=== PATIENT | male | born 1935 | race Caucasian/White ===

== ENCOUNTER 2021-07-17 11:55 | Outpatient (REF) | payer MEDICARE, SELFPAY ==
[2021-07-17 13:55] LABS: Estimated Average Glucose 203 mg/dL; Hemoglobin A1c % 8.7 %
== END 2021-07-17 11:56 | disposition home or self-care (01) ==
LOC: HO.MANLDS 11:55
PROVIDERS: PCP Internal Medicine; Visit Provider Internal Medicine
DX: E11.9 Type 2 diabetes mellitus without complications (principal)
CPT/HCPCS: 36415; 83036

== ENCOUNTER 2021-09-20 14:53 | Outpatient (REF) | payer MEDICARE, SELFPAY ==
[2021-09-20 19:28] LABS: Estimated Average Glucose 217 mg/dL; Hemoglobin A1c % 9.2 %
== END 2021-09-20 14:54 | disposition home or self-care (01) ==
LOC: HO.MANLDS 14:53
PROVIDERS: PCP Internal Medicine; Visit Provider Internal Medicine
DX: E11.9 Type 2 diabetes mellitus without complications (principal)
CPT/HCPCS: 36415; 83036

== ENCOUNTER 2022-01-17 09:06 | Outpatient (REF) | payer MEDICARE, SELFPAY ==
[2022-01-17 11:26] LABS: MANUAL DIFF FLAG NO
[2022-01-17 11:31] LABS: Basophils Absolute Auto 0.1 X10*3/uL (0.0-0.2); Basophils Percent Auto 0.9 % (0-2); Eosinophils Absolute Auto 0.3 X10*3/uL (0.0-0.4); Eosinophils Percent Auto 4.2 % (0-4); Hematocrit 39.4 % (42.0-52.0); Hemoglobin 12.8 g/dl (14.0-18.0); Imm Gran Abs Auto 0.03 X10*3/uL (0.00-0.03); Imm Gran Pct Auto 0.4 % (0.0-0.4); Lymphocytes Absolute Auto 1.5 X10*3/uL (1.2-4.9); Lymphocytes Percent Auto 18.5 % (20-40); Mean Corpuscular HGB Conc 32.5 g/dl (31.0-36.0); Mean Corpuscular Hemoglobin 29.8 pg (27.0-33.0); Mean Corpuscular Volume 91.6 fL (80.0-98.0); Mean Platelet Volume 10.8 fL (9.4-12.4); Monocytes Absolute Auto 0.7 X10*3/uL (0.1-1.2); Monocytes Percent Auto 8.6 % (2-11); Neutrophils Absolute Auto 5.4 x10*3/uL (2.0-8.3); Neutrophils Percent Auto 67.4 % (45-73); Platelet Count 357 X10*3/uL (160-400); Red Cell Distribution Width 14.3 % (11.0-16.0); White Blood Count 7.9 X10*3/uL (4.8-10.8)
[2022-01-17 11:41] LABS: Estimated Average Glucose 194 mg/dL; Hemoglobin A1c % 8.4 %
[2022-01-17 11:45] LABS: Alanine Aminotransferase 19 U/L (0-40); Alkaline Phosphatase 92 U/L (39-117); Anion Gap 11 (12-20); Aspartate Amino Transferase 19 U/L (5-37); Blood Urea Nitrogen 23 mg/dL (9-16); Calcium 9.3 mg/dL (8.4-10.2); Carbon Dioxide 27 mmol/L (22-29); Chloride 106 mmol/L (96-108); Cholesterol 133 mg/dL; Estimated Glomerular Filt Rate 42; Glucose Random 116 mg/dL (60-115); HDL Cholesterol 28 mg/dL; LDL Cholesterol Calculated 79 mg/dl; Potassium 4.4 mmol/L (3.3-5.1); Sodium 140 mmol/L (135-145); Total Protein 6.4 g/dL (6.5-8.0); Triglycerides 130 mg/dL
== END 2022-01-17 09:07 | disposition home or self-care (01) ==
LOC: HO.MANLDS 09:06
PROVIDERS: Visit Provider Physician Assistant
DX: E78.2 Mixed hyperlipidemia (principal); E11.9 Type 2 diabetes mellitus without complications
CPT/HCPCS: 36415; 80053; 80061; 83036; 85025

== ENCOUNTER 2022-04-17 10:52 | Outpatient (REF) | payer MEDICARE, SELFPAY ==
[2022-04-17 13:59] LABS: MANUAL DIFF FLAG NO
[2022-04-17 14:06] LABS: Basophils Absolute Auto 0.1 X10*3/uL (0.0-0.2); Basophils Percent Auto 1.1 % (0-2); Eosinophils Absolute Auto 0.2 X10*3/uL (0.0-0.4); Eosinophils Percent Auto 3.2 % (0-4); Hemoglobin 12.4 g/dl (14.0-18.0); Imm Gran Abs Auto 0.02 X10*3/uL (0.00-0.03); Imm Gran Pct Auto 0.3 % (0.0-0.4); Lymphocytes Absolute Auto 1.1 X10*3/uL (1.2-4.9); Lymphocytes Percent Auto 14.5 % (20-40); Mean Corpuscular HGB Conc 32.6 g/dl (31.0-36.0); Mean Corpuscular Hemoglobin 30.3 pg (27.0-33.0); Mean Corpuscular Volume 92.9 fL (80.0-98.0); Mean Platelet Volume 11.1 fL (9.4-12.4); Monocytes Absolute Auto 0.5 X10*3/uL (0.1-1.2); Monocytes Percent Auto 7.1 % (2-11); Neutrophils Absolute Auto 5.3 x10*3/uL (2.0-8.3); Neutrophils Percent Auto 73.8 % (45-73); Platelet Count 337 X10*3/uL (160-400); Red Blood Count 4.09 X10*6/uL (4.60-5.80); Red Cell Distribution Width 13.6 % (11.0-16.0); White Blood Count 7.2 X10*3/uL (4.8-10.8)
[2022-04-17 14:12] LABS: Estimated Average Glucose 169 mg/dL; Hemoglobin A1c % 7.5 %
[2022-04-17 14:17] LABS: Alanine Aminotransferase 21 U/L (0-40); Albumin Level 3.9 g/dL (3.5-5.0); Alkaline Phosphatase 81 U/L (39-117); Anion Gap 14 (12-20); Aspartate Amino Transferase 18 U/L (5-37); Bilirubin Total 0.8 mg/dL (0.0-1.0); Blood Urea Nitrogen 25 mg/dL (9-16); Calcium 9.3 mg/dL (8.4-10.2); Carbon Dioxide 27 mmol/L (22-29); Chloride 104 mmol/L (96-108); Estimated Glomerular Filt Rate 45; Glucose Random 250 mg/dL (60-115); Potassium 4.8 mmol/L (3.3-5.1); Sodium 140 mmol/L (135-145); Total Protein 6.3 g/dL (6.5-8.0)
== END 2022-04-17 10:53 | disposition home or self-care (01) ==
LOC: HO.MANLDS 10:52
PROVIDERS: Visit Provider Physician Assistant
DX: E78.2 Mixed hyperlipidemia (principal); E11.9 Type 2 diabetes mellitus without complications
CPT/HCPCS: 36415; 80053; 83036; 85025

== ENCOUNTER 2022-08-14 14:28 | Outpatient (REF) | payer MEDICARE, SELFPAY ==
[2022-08-15 07:45] LABS: Estimated Average Glucose 186 mg/dL; Hemoglobin A1c % 8.1 %
== END 2022-08-14 14:29 | disposition home or self-care (01) ==
LOC: HO.MANLDS 14:28
PROVIDERS: Visit Provider Physician Assistant
DX: E11.9 Type 2 diabetes mellitus without complications (principal)
CPT/HCPCS: 36415; 83036

== ENCOUNTER 2022-11-26 10:29 | Outpatient (REF) | payer MEDICARE, SELFPAY ==
[2022-11-26 14:01] LABS: MANUAL DIFF FLAG NO
[2022-11-26 14:34] LABS: Basophils Absolute Auto 0.1 X10*3/uL (0.0-0.2); Basophils Percent Auto 1.4 % (0-2); Eosinophils Absolute Auto 0.3 X10*3/uL (0.0-0.4); Eosinophils Percent Auto 4.6 % (0-4); Hemoglobin 13.2 g/dl (14.0-18.0); Imm Gran Abs Auto 0.02 X10*3/uL (0.00-0.03); Imm Gran Pct Auto 0.3 % (0.0-0.4); Lymphocytes Absolute Auto 1.4 X10*3/uL (1.2-4.9); Lymphocytes Percent Auto 18.5 % (20-40); Mean Corpuscular HGB Conc 32.2 g/dl (31.0-36.0); Mean Corpuscular Hemoglobin 29.7 pg (27.0-33.0); Mean Corpuscular Volume 92.1 fL (80.0-98.0); Mean Platelet Volume 10.9 fL (9.4-12.4); Monocytes Absolute Auto 0.6 X10*3/uL (0.1-1.2); Monocytes Percent Auto 8.6 % (2-11); Neutrophils Absolute Auto 4.9 x10*3/uL (2.0-8.3); Neutrophils Percent Auto 66.6 % (45-73); Platelet Count 349 X10*3/uL (160-400); Red Blood Count 4.45 X10*6/uL (4.60-5.80); Red Cell Distribution Width 14.3 % (11.0-16.0); White Blood Count 7.4 X10*3/uL (4.8-10.8)
[2022-11-26 14:40] LABS: Alanine Aminotransferase 26 U/L (0-40); Albumin Level 3.9 g/dL (3.5-5.0); Alkaline Phosphatase 97 U/L (39-117); Anion Gap 11 (12-20); Aspartate Amino Transferase 22 U/L (5-37); Blood Urea Nitrogen 25 mg/dL (9-16); Calcium 9.6 mg/dL (8.4-10.2); Carbon Dioxide 29 mmol/L (22-29); Chloride 107 mmol/L (96-108); Estimated Glomerular Filt Rate 51; Glucose Random 197 mg/dL (60-115); Potassium 4.6 mmol/L (3.3-5.1); Sodium 142 mmol/L (135-145); Total Protein 6.4 g/dL (6.5-8.0)
[2022-11-26 14:45] LABS: Estimated Average Glucose 169 mg/dL; Hemoglobin A1c % 7.5 %
== END 2022-11-26 10:30 | disposition home or self-care (01) ==
LOC: HO.MANLDS 10:29
PROVIDERS: Visit Provider Physician Assistant
DX: E78.2 Mixed hyperlipidemia (principal); E11.9 Type 2 diabetes mellitus without complications
CPT/HCPCS: 36415; 80053; 83036; 85025

== ENCOUNTER 2023-01-21 10:25 | Outpatient (REF) | payer MEDICARE, SELFPAY ==
[2023-01-21 13:29] LABS: MANUAL DIFF FLAG NO
[2023-01-21 13:51] LABS: Basophils Absolute Auto 0.1 X10*3/uL (0.0-0.2); Basophils Percent Auto 0.9 % (0-2); Eosinophils Absolute Auto 0.2 X10*3/uL (0.0-0.4); Eosinophils Percent Auto 2.2 % (0-4); Hematocrit 39.9 % (42.0-52.0); Hemoglobin 12.7 g/dl (14.0-18.0); Imm Gran Abs Auto 0.04 X10*3/uL (0.00-0.03); Imm Gran Pct Auto 0.4 % (0.0-0.4); Lymphocytes Absolute Auto 1.1 X10*3/uL (1.2-4.9); Lymphocytes Percent Auto 11.8 % (20-40); Mean Corpuscular HGB Conc 31.8 g/dl (31.0-36.0); Mean Corpuscular Volume 94.3 fL (80.0-98.0); Monocytes Absolute Auto 0.9 X10*3/uL (0.1-1.2); Monocytes Percent Auto 10.1 % (2-11); Neutrophils Absolute Auto 6.8 x10*3/uL (2.0-8.3); Neutrophils Percent Auto 74.6 % (45-73); Platelet Count 317 X10*3/uL (160-400); Red Blood Count 4.23 X10*6/uL (4.60-5.80); Red Cell Distribution Width 14.8 % (11.0-16.0); White Blood Count 9.1 X10*3/uL (4.8-10.8)
[2023-01-21 14:22] LABS: Estimated Average Glucose 166 mg/dL; Hemoglobin A1c % 7.4 %
[2023-01-21 14:34] LABS: Alanine Aminotransferase 22 U/L (0-40); Albumin Level 3.8 g/dL (3.5-5.0); Alkaline Phosphatase 86 U/L (39-117); Anion Gap 12 (12-20); Aspartate Amino Transferase 20 U/L (5-37); Bilirubin Total 0.8 mg/dL (0.0-1.0); Blood Urea Nitrogen 25 mg/dL (9-16); Calcium 9.6 mg/dL (8.4-10.2); Carbon Dioxide 27 mmol/L (22-29); Chloride 107 mmol/L (96-108); Estimated Glomerular Filt Rate 52; Glucose Random 200 mg/dL (60-115); Potassium 4.6 mmol/L (3.3-5.1); Sodium 141 mmol/L (135-145); Total Protein 6.5 g/dL (6.5-8.0)
== END 2023-01-21 10:26 | disposition home or self-care (01) ==
LOC: HO.MANLDS 10:25
PROVIDERS: Internal Medicine; Visit Provider Physician Assistant
DX: E78.2 Mixed hyperlipidemia (principal); E11.9 Type 2 diabetes mellitus without complications
CPT/HCPCS: 36415; 80053; 83036; 85025

== ENCOUNTER 2023-04-29 09:34 | Outpatient (REF) | payer MEDICARE, SELFPAY ==
[2023-04-29 13:58] LABS: Estimated Average Glucose 183 mg/dL
== END 2023-04-29 09:35 | disposition home or self-care (01) ==
LOC: HO.MANLDS 09:34
PROVIDERS: Visit Provider Internal Medicine
DX: E11.9 Type 2 diabetes mellitus without complications (principal)
CPT/HCPCS: 36415; 83036

== ENCOUNTER 2023-09-13 09:21 | Outpatient (REF) | payer MEDICARE, SELFPAY ==
[2023-09-13 13:10] LABS: MANUAL DIFF FLAG NO
[2023-09-13 13:31] LABS: Basophils Absolute Auto 0.1 X10*3/uL (0.0-0.2); Basophils Percent Auto 0.9 % (0-2); Eosinophils Absolute Auto 0.2 X10*3/uL (0.0-0.4); Eosinophils Percent Auto 2.5 % (0-4); Hematocrit 42.6 % (42.0-52.0); Hemoglobin 13.7 g/dl (14.0-18.0); Imm Gran Abs Auto 0.02 X10*3/uL (0.00-0.03); Imm Gran Pct Auto 0.3 % (0.0-0.4); Lymphocytes Absolute Auto 1.3 X10*3/uL (1.2-4.9); Lymphocytes Percent Auto 16.7 % (20-40); Mean Corpuscular HGB Conc 32.2 g/dl (31.0-36.0); Mean Corpuscular Hemoglobin 30.2 pg (27.0-33.0); Mean Corpuscular Volume 93.8 fL (80.0-98.0); Mean Platelet Volume 11.2 fL (9.4-12.4); Monocytes Absolute Auto 0.5 X10*3/uL (0.1-1.2); Monocytes Percent Auto 6.4 % (2-11); Neutrophils Absolute Auto 5.5 x10*3/uL (2.0-8.3); Neutrophils Percent Auto 73.2 % (45-73); Platelet Count 325 X10*3/uL (160-400); Red Blood Count 4.54 X10*6/uL (4.60-5.80); Red Cell Distribution Width 13.7 % (11.0-16.0); White Blood Count 7.5 X10*3/uL (4.8-10.8)
[2023-09-13 14:04] LABS: Estimated Average Glucose 214 mg/dL; Hemoglobin A1c % 9.1 % (<6.0)
[2023-09-13 14:39] LABS: Alanine Aminotransferase 23 U/L (0-40); Albumin Level 3.8 g/dL (3.5-5.0); Alkaline Phosphatase 92 U/L (39-117); Anion Gap 12 (12-20); Aspartate Amino Transferase 21 U/L (5-37); Bilirubin Total 1.3 mg/dL (0.0-1.0); Blood Urea Nitrogen 18 mg/dL (9-16); Calcium 9.7 mg/dL (8.4-10.2); Carbon Dioxide 30 mmol/L (22-29); Chloride 105 mmol/L (96-108); Estimated Glomerular Filt Rate 56; Glucose Random 277 mg/dL (60-115); Potassium 4.9 mmol/L (3.3-5.1); Sodium 142 mmol/L (135-145); Total Protein 6.8 g/dL (6.5-8.0)
== END 2023-09-13 09:22 | disposition home or self-care (01) ==
LOC: HO.MANLDS 09:21
PROVIDERS: Visit Provider Internal Medicine
DX: E11.9 Type 2 diabetes mellitus without complications (principal)
CPT/HCPCS: 36415; 80053; 83036; 85025

== ENCOUNTER 2024-01-17 07:50 | Outpatient (REF) | payer MEDICARE, SELFPAY ==
[2024-01-17 13:24] LABS: Estimated Average Glucose 174 mg/dL; Hemoglobin A1c % 7.7 % (<6.0)
[2024-01-17 13:53] LABS: Cholesterol 131 mg/dL (<200); HDL Cholesterol 37 mg/dL (>40); LDL Cholesterol Calculated 77 mg/dL (<100); Triglycerides 89 mg/dL (<150)
== END 2024-01-17 07:51 | disposition home or self-care (01) ==
LOC: HO.MANLDS 07:50
PROVIDERS: Visit Provider Internal Medicine
DX: E11.9 Type 2 diabetes mellitus without complications (principal)
CPT/HCPCS: 36415; 80061; 83036

== ENCOUNTER 2024-05-19 08:36 | Outpatient (REF) | payer MEDICARE, SELFPAY ==
[2024-05-19 13:54] LABS: Estimated Average Glucose 217 mg/dL; Hemoglobin A1C 260.4499 umol/L; Hemoglobin A1c % 9.2 % (<6.0); Total Hemoglobin (HGBA1C) 3369.6535 umol/L
== END 2024-05-19 08:37 | disposition home or self-care (01) ==
LOC: HO.MANLDS 08:36
PROVIDERS: Visit Provider Internal Medicine
DX: E11.9 Type 2 diabetes mellitus without complications (principal)
CPT/HCPCS: 36415; 83036

== ENCOUNTER 2024-08-19 09:10 | Outpatient (REF) | payer MEDICARE, SELFPAY ==
--- OUTSIDE RECORDS SUMMARY | 2024-08-19 10:10 | XMS_ITS | Data Portability ---
Author Organization [facility], Home Service Address [address] [place] [address] Assessment Encounter Date Assessment Date Assessment LastModified by Organization Details LastModified Time 09/24/2023 09/24/2023 [id number] [place] [id number]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 2 OUT OF 3 ELEMENTS: PROBLEMS, DATA OR RISK ELEMENT 1: PROBLEMS ADDRESSED 1 OR MORE CHRONIC ILLNESS WITH EXACERBATION OR 2 OR MORE STABLE CHRONIC ILLNESSES OR 1 UNDIAGNOSED NEW PROBLEM OR 1 ACUTE ILLNESS W/SYMPTOMS OR 1 ACUTE COMPLICATED INJURY ELEMENT 2: DATA MUST MEET 1 OF 3 CATEGORIES CATEGORY 1: REVIEW OF PRIOR EXTERNAL NOTES, REVIEW OF RESULTS, ORDERING OF EACH TEST, ASSESSMENT REQUIRING INDEPENDENT HISTORIAN OR CATEGORY 2: INDEPENDENT INTERPRETATION OF TESTS BY ANOTHER PHYSICIAN OR SPECIALIST OR CATEGORY 3: DISCUSSION OF MGT OR TEST INTERPRETATION W/EXTERNAL PHYSICIAN OR SPECIALIST ELEMENT 3: RISK RISK OF COMPLICATIONS AND/OR MORBIDITY OR MORTALITY OF PATIENT MANAGEMENT PROVIDER MUST THOROUGHLY DOCUMENT EACH ELEMENT THAT IS COVERED Not available 09/24/2023 13:34:32 05/25/2024 05/25/2024 [id number] [place] [id number]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 2 OUT OF 3 ELEMENTS: PROBLEMS, DATA OR RISK ELEMENT 1: PROBLEMS ADDRESSED 1 OR MORE CHRONIC ILLNESS WITH EXACERBATION OR 2 OR MORE STABLE CHRONIC ILLNESSES OR 1 UNDIAGNOSED NEW PROBLEM OR 1 ACUTE ILLNESS W/SYMPTOMS OR 1 ACUTE COMPLICATED INJURY ELEMENT 2: DATA MUST MEET 1 OF 3 CATEGORIES CATEGORY 1: REVIEW OF PRIOR EXTERNAL NOTES, REVIEW OF RESULTS, ORDERING OF EACH TEST, ASSESSMENT REQUIRING INDEPENDENT HISTORIAN OR CATEGORY 2: INDEPENDENT INTERPRETATION OF TESTS BY ANOTHER PHYSICIAN OR SPECIALIST OR CATEGORY 3: DISCUSSION OF MGT OR TEST INTERPRETATION W/EXTERNAL PHYSICIAN OR SPECIALIST ELEMENT 3: RISK RISK OF COMPLICATIONS AND/OR MORBIDITY OR MORTALITY OF PATIENT MANAGEMENT PROVIDER MUST THOROUGHLY DOCUMENT EACH ELEMENT THAT IS COVERED Not available 05/25/2024 14:18:27 Plan of Treatment Reminders Order Date Submit Date Provider Last Modified By Organization Details Last Modified Time Details Appointments FOLLOW UP 15 2024 02:15P M DR DAO Not available Not available Not available Lab HbA1c (hemoglob in A1c), blood 2023 024 [facility], [place], [address], 09/24/2023 13:38:46 lipid panel, blood 2023 024 [facility], [place], [address], 09/24/2023 13:38:45 urinalysi s, dipstick 2024 025 [facility], [address], [address], [place], [address], 07/13/2024 11:47:11 urinalysi s, reflex culture 2024 025 [facility], [place], [address], 07/14/2024 07:22:17 Referral ophthalmo logist referral 2023 024 juan manuel Cedillo, [address] [facility] [place], [place], [address], 10/22/2023 08:05:57 Procedures None recorded. Surgeries None recorded. Imaging None recorded. Medication Orders glimepiri de 4 mg tablet 2023 024 [id number], [address] [place], [place], [phone], 09/24/2023 13:37:37 Januvia 50 mg tablet 2023 024 [facility][id number], [address] [place], [place], [id number], 04/15/2024 08:39:49 pioglitaz one 15 mg tablet 2023 024 [facility][id number], [address] [place], [place], [id number], 06/14/2024 22:00:19 Bactrim DS 800 mg-160 mg tablet 2024 025 [facility] #[id number], [address] [place], [place], [id number], 07/13/2024 12:07:18 acarbose 50 mg tablet 2024 025 [facility] #[id number], [address] [place], [place], [phone], 07/13/2024 12:21:24 Patient TargetsNo targets recorded. Patient Instructions Encounter Date Encounter Id Patient Instructions Last Modified By Organization Details Last Modified Time 01/29/2024 [id number] high blood pressure: care instructions Not available 01/29/2024 13:33:28 learning about high blood pressure Not available 01/29/2024 13:33:28 Reason for Referral Functional Tester Referral for Bilateral cataracts Referring Physician: Osvaldo Dao, Internal Medicine, Encounter Date: 09/24/2023 Results Created Date Observation Date Name Description Value Unit Range Abnormal Flag Note LastModifiedBy Organization Detail LastModifiedTime 07/13/1907/13/2024 urina lysis , dipst ick Leukocytes Large Not Available [facility] [address] [address], [place], [address], 07/13/2024 11:39:03 07/13/19 25 07/13/2024 urina lysis , dipst ick Nitrite negati ve Not Available [facility] [address] [address] [address], [place], [address], 07/13/2024 11:39:03 07/13/19 25 07/13/2024 urina lysis , dipst ick Urobilinogen .2 Not Available [address], [place], [address], 07/13/2024 11:39:03 07/13/19 25 07/13/2024 urina lysis , dipst ick Protein 30 Not Available [address], [place], [address], 07/13/2024 11:39:03 07/13/19 25 07/13/2024 urina lysis , dipst ick pH 6.0 Not Available [address], [place], [address], 07/13/2024 11:39:03 07/13/19 25 07/13/2024 urina lysis , dipst ick Blood Large Not Available [address], [place], [address], 07/13/2024 11:39:03 07/13/19 25 07/13/2024 urina lysis , dipst ick Specific [place] 1.010 Not Available [address], [place], [address], 07/13/2024 11:39:03 07/13/19 25 07/13/2024 urina lysis , dipst ick Ketone Negati ve Not Available [address], [place], [address], 07/13/2024 11:39:03 07/13/19 25 07/13/2024 urina lysis , dipst ick Bilirubin Negati ve Not Available [address], [place], [address], 07/13/2024 11:39:03 07/13/19 25 07/13/2024 urina lysis , dipst ick Glucose 500 Not Available [facility] [address], [place], [address], 07/13/2024 11:39:03 07/13/19 25 07/13/2024 urina lysis , dipst ick Appearance Slight ly Cloudy Not Available [facility] [address], [place], [address], 07/13/2024 11:39:03 07/13/19 25 07/13/2024 urina lysis , dipst ick Color Yellow Not Available [facility] [address], [place], [address], 07/13/2024 11:39:03 Result Notes None recorded. 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 068585022 Completed 201706/27/2018 Osvaldo Dao, DO [address] [facility], [place], [address], [facility] - [facility] 8 11:06:39 History of placemen t of stent in anterior descendi ng branch of left coronary artery 659097270 Active 2017 Not Available [facility] 3 22:27:48 Benign prostati c hyperpla sharita 582663725 Active 2017 Not Available [facility] 3 22:27:48 Gastroin testinal hemorrha ge 73725976 Active 2017 Not Available [facility] 3 22:27:48 Anemia 992969723 Active 2017 Not Available [facility] 3 22:27:48 Acute depressi on 094598829 Active 2017 Not Available [facility] 3 22:27:48 Chronic anxiety 710543088 Active 2017 Not Available [facility] 3 22:27:48 Tinnitus 94330100 Completed 201710/17/2018 Osvaldo Dao, DO [address] [place] [address], [address], [facility] 9 15:34:00 Patient paced 792355315 Active 2020 Not Available [facility] 3 22:27:48 Cellulit is of right lower limb 29894582307 786753 Active 2021 Not Available [facility] 3 22:27:48 Pressure ulcer Active 2021 Not Available [facility] 3 22:27:48 Cellulit is of left foot 13856261486 288350 Active 2021 Not Available [facility] 3 22:27:48 Paronych ia of toe of left foot 47394961139 116143 Active 2021 Not Available [facility] 3 22:27:48 Pressure ulcer of foot 84822211200 4101 Active 2021 Not Available [facility] 3 22:27:48 Ingrowin g nail of toe of left foot 70820253054 816999 Active 2021 Not Available [facility] 3 22:27:48 Edema of lower extremit y 183510780 Active 2021 Not Available [facility] 3 22:27:48 Cellulit is of toe of right foot 29309011473 745761 Active 2021 Not Available [facility] 3 22:27:48 Peripher al vascular disease 536428902 Active 2021 Not Available [facility] 3 22:27:48 Venous stasis ulcer of leg 498110861 Active 2021 Not Available [facility] 3 22:27:48 Venous stasis ulcer of leg 374967409 Active 2021 Not Available [facility] 3 22:27:48 Acute otitis media 0434183 Active 2022 Not Available [facility] 3 22:27:48 Acute otitis media 0502626 Active 2022 Not Available [facility] 3 22:27:48 Impacted cerumen of bilatera l ears 75359347289 08829 Active 2022 Not Available [facility] 3 22:27:48 Superfic ial injury of finger 604617527 Active 2022 Not Available [facility] 3 22:27:48 Pain of ear 221615545 Active 2022 Not Available [facility] 3 22:27:48 Bilatera l cataract s 98554604 Active 2023 Osvaldo Dao DO [address] [place] [address], [address], [facility] 4 13:40:22 Dysuria 62813334 Active 2024 TRUPTI DAVEY [address] [place] [address], [address], [facility] 5 12:25:16 Dysuria- frequenc y syndrome 4902303 Active 2024 Osvaldo Dao DO [address] [place] [address], [address], [facility] 5 10:27:50 Notes:Some problems listed i n Documents: #[id number], #[id number], #[id number] could not be added to this patient's chart. Please review these documents and add these problems to the patient's chart manually as needed. Problem Notes None recorded. Procedures Surgical History Date Name Laterality Status Provider Name and Address Organization Details Recorded Time 3 Cerumen Removal completed TRUPTI DAVEY [address] [place] [address], [address], [facility] 12/19/2022 14:27:18 2 WOUND CARE completed TRUPTI DAVEY [address] [place], [address], [facility] 12/06/2021 11:42:56 2 WOUND CARE completed TRUPTI DAVEY [address] [place], [address], [facility] 11/22/2021 13:49:28 2 WOUND CARE completed TRUPTI DAVEY [address] [place], [address], [facility] 11/15/2021 11:28:50 Imaging Results None recorded. Procedure Notes None recorded. Medical Equipment None Reported. Allergies Allergen ID Allergen Name Allergen Category Reaction Reaction Severity Criticality Documentation Date Start Date Code Code System Note Provider Name and Address Organization Details Recorded Time 327 penicilli n V Not available Not available Not available Not available 09/10/2017 7984 [facility] 8 16:15[facility]55 328 lovastati n medicatio n myalgias (muscle pain) Not available Not available 09/10/2017 6472 RxNorm Nighat merida [facility] 8 16:16:00 5117 amlodipin e medicatio n other Not available Not available 05/31/2021 36961 RxNorm swell ing legs TRUPTI DAVEY [address] [place], [address], [facility] 1 14:12:32 5384 hydrochlo rothiazid e medicatio n dizziness Not available Not available 07/31/2021 5487 RxNorm Osvaldo Dao, [address] [place], [address], [facility] 2 12:15:26 6411 Jardiance medicatio n Not available Not available Not available 08/29/2022 03708 59 RxNorm Nighat merida [facility] 3 14:41:52 8650 pioglitaz one medicatio n Not available Not available Not available 07/13/2024 24449 RxNorm TRUPTI DAVEY [address] [place], [address], [facility] 5 12:07:31 Medications Name Sig Start Date Stop Date Status Note LastModified by Organization Details LastModified Time quetiapin e 25 mg tablet 09/29 completed Not Available Not Available Not Available pioglitaz one 15 mg tablet TAKE 1 TABLET BY MOUTH EVERY DAY 06/14 completed Not Available Not Available Not Available atorvasta tin 40 mg tablet TAKE 1 TABLET BY MOUTH DAILY active Not Available Not Available No t Available carvedilo l 25 mg tablet Take 1 tablet every day by oral route for 90 days. active Not Available Not Available No t Available doxycycli ne hyclate 100 mg capsule TAKE 1 CAPSULE BY MOUTH TWICE DAILY FOR 10 DAYS 07/13 completed Not Available Not Available Not Available carvedilo l 12.5 mg tablet active Not Available Not Available Not Available tizanidin e 2 mg tablet TAKE 1 TABLET BY MOUTH TWICE A DAY 09/22 completed Not Available Not Available Not Available ibuprofen 800 mg tablet 11/29 completed Not Available Not Available Not Available atenolol 100 mg tablet TAKE 1 TABLET BY MOUTH EVERY DAY 07/31 completed Not Available Not Available Not Available cephalexi n 250 mg capsule TAKE 1 CAPSULE BY MOUTH EVERY 6 HOURS FOR 7 DAYS 01/22 completed Not Available Not Available Not Available glipizide ER 10 mg tablet, extended release 24 hr Take 1 tablet every day by oral route for 30 days. 09/29 completed Not Available Not Available Not Available lisinopri l 20 mg tablet TAKE 1 TABLET BY MOUTH DAILY 07/31 completed Not Available Not Available Not Available isosorbid e mononitra te ER 30 mg tablet,ex tended release 24 hr TAKE 1 TABLET BY MOUTH DAILY IN THE MORNING 10/09 completed Not Available Not Available Not Available propranol ol ER 60 mg capsule,2 4 hr,extend ed release TAKE 1 CAPSULE BY MOUTH EVERY DAY 06/17 completed Not Available Not Available Not Available metoprolo l succinate ER 100 mg tablet,ex tended release 24 hr TAKE 1 TABLET BY MOUTH DAILY 09/22 completed Not Available Not Available Not Available acarbose 50 mg tablet TAKE 1 TABLET BY MOUTH EVERY DAY active Not Available Not Available No t Available clindamyc in HCl 150 mg capsule 11/29 completed Not Available Not Available Not Available amlodipin e 2.5 mg tablet Take 1 tablet every day by oral route for 90 days. 01/30 completed Not Available Not Available Not Available clopidogr el 75 mg tablet TAKE 1 TABLET BY MOUTH DAILY 08/14 completed Not Available Not Available Not Available Aspir-Low 81 mg tablet,de layed release Take 1 tablet every day by oral route. active Not Available Not Available No t Available amlodipin e 5 mg tablet TAKE 1 TABLET BY MOUTH ONCE A DAY 07/31 completed Not Available Not Available Not Available sulfameth oxazole 800 mg-trimet hoprim 160 mg tablet TAKE 1 TABLET BY MOUTH EVERY 12 HOURS FOR 5 DAYS active Not Available Not Available No t Available simvastat in 40 mg tablet TAKE ONE TABLET BY MOUTH ONCE DAILY 08/31 completed Not Available Not Available Not Available glimepiri de 2 mg tablet TAKE 2 TABLETS BY MOUTH EVERY DAY 04/15 completed Not Available Not Available Not Available lamotrigi ne 25 mg tablet Take one tablet twice a day. 08/31 completed Not Available Not Available Not Available nortripty line 25 mg capsule TAKE 1 CAPSULE BY MOUTH EVERY DAY active Not Available Not Available No t Available lorazepam 0.5 mg tablet TAKE 1 TABLET BY MOUTH THREE TIMES DAILY active Not Available Not Available No t Available pantopraz ole 40 mg tablet,de layed release TAKE 1 TABLET BY MOUTH EVERY DAY active Not Available Not Available No t Available nortripty line 10 mg capsule TAKE 1 CAPSULE BY MOUTH EVERY DAY active Not Available Not Available No t Available clotrimaz ole-betam ethasone 1 %-0.05 % topical cream APPLY TOPICALL Y TO THE AFFECTED AND SURROUND ING AREAS TWICE DAILY IN THE MORNING AND IN THE EVENING FOR 2 WEEKS 05/10 completed Not Available Not Available Not Available glimepiri de 4 mg tablet TAKE 1 TABLET BY MOUTH EVERY DAY active Not Available Not Available No t Available losartan 25 mg tablet TAKE 1 TABLET BY MOUTH EVERY DAY 08/31 completed Not Available Not Available Not Available omeprazol e 20 mg capsule,d elayed release Take 1 capsule every day by oral route for 30 days. 09/22 completed Not Available Not Available Not Available lisinopri l 20 mg-hydroc hlorothia zide 25 mg tablet TAKE 1 TABLET BY MOUTH DAILY 07/31 completed dizzines s Not Available Not Available Not Available lisinopri l 5 mg tablet TAKE 1 TABLET BY MOUTH EVERY DAY 07/31 completed Not Available Not Available Not Available mupirocin 2 % topical ointment APPLY SMALL AMOUNT TOPICALL Y TO THE AFFECTED AREA THREE TIMES DAILY 05/10 completed Not Available Not Available Not Available gabapenti n 100 mg capsule Take 2 capsules twice a day by oral route. 08/31 completed Not Available Not Available Not Available lotepredn ol etabonate 0.5 % eye drops,humza pension active Not Available Not Available Not Available lorazepam 1 mg tablet Take one tablet twice a day. 08/31 completed Not Available Not Available Not Available SSD 1 % topical cream APPLY A 1/16 INCH THICK LAYER TO ENTIRE BURN AREA TOPICALL Y TWICE DAILY active Not Available Not Available No t Available pioglitaz one 30 mg tablet TAKE 1 TABLET BY MOUTH EVERY DAY 07/13 completed Not Available Not Available Not Available celecoxib 100 mg capsule TAKE 1 CAPSULE BY MOUTH TWICE A DAY WITH MEALS 10/09 completed Not Available Not Available Not Available ketoconaz ole 2 % topical cream APPLY TOPICALL Y TO THE AFFECTED AREA EVERY DAY 01/30 completed Not Available Not Available Not Available lisinopri l 40 mg tablet Take 1 tablet every day by oral route. active Not Available Not Available No t Available metformin ER 500 mg tablet,ex tended release 24 hr TAKE 1 TABLET BY MOUTH EVERY DAY 05/25 completed Not Available Not Available Not Available doxycycli ne hyclate 100 mg tablet TAKE 1 TABLET BY MOUTH TWICE DAILY FOR 7 DAYS 05/10 completed Not Available Not Available Not Available atenolol 50 mg tablet TAKE 1 TABLET BY MOUTH EVERY DAY 08/31 completed Not Available Not Available Not Available neomycin- polymyxin -hydrocor t 3.5 mg-10,000 unit/mL-1 % ear drops,humza p INSTILL 4 DROPS INTO AFFECTED EAR(S) BY OTIC ROUTE 3 TIMES PER DAY active Not Available Not Available No t Available moxifloxa doroteo 0.5 % eye drops INSTILL 1 DROP IN OPERATIV E EYE THREE TIMES DAILY STARTING 1 DAY PRE- OPERATIO N FOR 7 DAYS AFTER SURGERY. 07/13 completed Not Available Not Available Not Available ciproflox acin 0.3 %-dexamet hasone 0.1 % ear drops,humza pension SHAKE LIQUID AND INSTILL 4 DROPS TO AFFECTED EAR TWICE DAILY FOR 7 DAYS 01/30 completed Not Available Not Available Not Available nitrofura ntoin monohydra te/macroc rystals 100 mg capsule Take 1 capsule every 12 hours by oral route for 10 days. 2024 active Not Available Not Available Not Avai lable losartan 100 mg-hydroc hlorothia zide 12.5 mg tablet TAKE ONE TABLET BY MOUTH ONCE DAILY 02/23 completed Not Available Not Available Not Available Januvia 50 mg tablet TAKE 1 TABLET BY MOUTH EVERY DAY 04/15 completed Not Available Not Available Not Available hydrochlo rothiazid e 12.5 mg tablet active Not Available Not Available Not Available OneTouch Verio test strips USE TO TEST BLOOD GLUCOSE TWICE DAILY active Not Available Not Available No t Available Prolensa 0.07 % eye drops INSTILL 1 DROP IN OPERATIV E EYEQAM FOR 42 DAYS. START 1 DAY PRE-OP 07/13 completed Not Available Not Available Not Available Jardiance 10 mg tablet TAKE 1 TABLET BY MOUTH EVERY DAY 08/29 completed Not Available Not Available Not Available metoprolo l succinate ER 100 mg capsule sprinkle, ext. release 24 hr Take 1 capsule every day by oral route. 07/31 completed Not Available Not Available Not Available OneTouch Delica Plus Lancet 30 gauge USE TO TEST BLOOD GLUCOSE TWICE DAILY active Not Available Not Available No t Available OneTouch Verio Reflect Meter USE DIRECTED active Not Available Not Available No t Available Vitals Date Recorded Body height Body mass index (BMI) Body weight Heart rate Oxygen saturation Oxygen saturation in Arterial blood by Pulse oximetry Systolic blood pressure Diastolic blood pressure Provider Name and Address Organization Details Last Updated DateTime 4 169.55 cm 21.9 kg/m2 02648.3 4 g 64 /min 97 % 97 % 170 mm[Hg] 80 mm[Hg] Asia Drake [facility] 4 13:22:39 Date Recorded Body height Body mass index (BMI) Body weight Heart rate Oxygen saturation Oxygen saturation in Arterial blood by Pulse oximetry Systolic blood pressure Diastolic blood pressure Provider Name and Address Organization Details Last Updated DateTime 4 169.55 cm 21.6 kg/m2 05644.1 5 g 64 /min 97 % 97 % 130 mm[Hg] 78 mm[Hg] Asia Juan [facility] 4 10:05:19 Date Recorded Body height Body mass index (BMI) Body weight Heart rate Oxygen saturation Oxygen saturation in Arterial blood by Pulse oximetry Systolic blood pressure Diastolic blood pressure Provider Name and Address Organization Details Last Updated DateTime 4 169.55 cm 21.6 kg/m2 58991.1 5 g 68 /min 97 % 97 % 168 mm[Hg] 80 mm[Hg] Asia Juan [facility] 4 13:25:18 Date Recorded Body height Body mass index (BMI) Body weight Heart rate Oxygen saturation Oxygen saturation in Arterial blood by Pulse oximetry Systolic blood pressure Diastolic blood pressure Provider Name and Address Organization Details Last Updated DateTime 4 169.55 cm 21.8 kg/m2 72238.7 5 g 61 /min 96 % 96 % 160 mm[Hg] 70 mm[Hg] Osvaldo Dao, DO [address] [place], [address] 4 13:57:59 Date Recorded Body height Body mass index (BMI) Body weight Heart rate Oxygen saturation Oxygen saturation in Arterial blood by Pulse oximetry Systolic blood pressure Diastolic blood pressure Provider Name and Address Organization Details Last Updated DateTime 5 169.55 cm 22.6 kg/m2 61077.0 7 g 51 /min 96 % 96 % 160 mm[Hg] 64 mm[Hg] Nova Melton [facility] 5 11:38:36 Social History Question Answer Notes LastModified by Organizat ion Details LastModified Time Tobacco Smoking Status Former Smoker Not Available [facility] 05/10/2020 03:36:23 What Was The Date Of Your Most Recent Tobacco Screening? 07/13/2024 [email or web address] Information not available 07/13/2024 Do You Use Any Illicit Or Recreational Drugs? No Information not available 10/09/2021 Do You Or Have You Ever Used Any Other Forms Of Tobacco Or Nicotine? No Information not available 10/09/2021 Sex: Unknown Functional Status None recorded. Mental Status None recorded. Family History Nothing Reported. Medical History No medical history recorded. Immunizations Vaccine Type Date Status Note Provider Nam e and Address Organization Details Recorded Time COVID-19, mRNA, LNP-S, PF, 100 mcg/0.5mL dose or 50 mcg/0.25mL dose 1 completed Not Available [facility] 03/04/2023 22:27:48 SARS-COV-2 (COVID-19) vaccine, UNSPECIFIED 1 completed Not Available [facility] 03/04/2023 22:27:48 Past Encounters Encounter ID Performer Location Encounter Start Date Encounter Closed Date Diagnosis/Indication Diagnosis SNOMED-CT Code Diagnosis ICD10 Code Diagnosis Note [id number] Osvaldo Dao DO [facility] [address] [facility], [place] [address] 11/29/2017 10:21:42 11/29/2017 11:26:27 Type 2 diabetes mellitus 26934778 E11.9 A1c has increased from 6.6 to 6.9 discussion re better diet and less carbs is active outside and he is encouraged to cont as such Essential hypertension 13916138 I10 stable and no change in meds Chronic anxiety 17203007 9 F41.9 sleeps well , not as tense as in past due to see dr jansen next month [id number] Osvaldo Dao DO [facility] Internal Medicine [address] [facility],[place] [address] 03/14/2018 10:24:36 03/14/2018 11:19:08 Essential hypertension 34611156 I10 stable and no change in meds Type 2 tristin betes mellitus 36491457 E11.9 A1c has increased from 6.6 to 6.9 and is now down to 6.7 discussion re better diet and less carbs remains active outside and he is encouraged to cont as such [id number] Osvaldo Dao DO [facility] [address] [facility],[place] [address] 06/27/2018 10:47:10 06/27/2018 15:59:15 Chronic anxiety 463919691 F41.9 sleeps well , not as tense as in past due to see dr jansen next month Essential hypertension 73163346 I10 stable and no change in meds Type 2 tristin betes mellitus 66646784 E11.9 A1c has increased from 6.6 to 6.9 and 6.7 and is now up to 7.2 discussion re better diet and less carbs remains active outside and he is encouraged to cont as such Coronary arteriosclerosis 12364716 I25.10 asymptomat ic and is compliant with meds and is being carefula dnis staying very active [id number] Osvaldo Dao [facility] Internal Medicine [address] [facility],[place] [address] 10/08/2018 10:48:51 10/08/2018 11:46:22 Type 2 diabetes mellitus 22766919 E11.9 A1c has increased from 6.6 to 6.9 and 6.7 and is now up to 7.2 discussion re better diet and less carbs remains active outside and he is encouraged to cont as such Essential hypertension 65364270 I10 will change med to propranolo l 60 Coronary arteriosclerosis 74811212 I25.10 asymptomat ic and is compliant with meds and is being careful and is staying very active Chronic anxiety 29543082 9 F41.9 has worsened since his meds were changed will try to discuss with dr millan Tinnitus 60201265 H93.12 still very bad and is keeping him awake stop the losartan and the simvastat will use propranolo l Headache 21289383 R51 new onset severe headache that is progressiv e and worsening and causing severe distress [id number] Osvaldo Dao [facility] Internal Medicine [address] [facility],[place] [address] 10/17/2018 14:45:52 10/17/2018 15:43:02 Type 2 diabetes mellitus 48438829 E11.9 A1c has increased from 6.6 to 6.9 and 6.7 and is now up to 7.2 discussion re better diet and less carbs remains active outside and he is encouraged to cont as such Acute depression 6211370 08 F32.9 had been stopped all his meds by psych he crashed and is now back on his meds but still feels awful Tinnitus 88484553 H93.12 NOW GONE!!!! off the losar t and atorvastat and is on propranolo l and is doing great [id number] Osvaldo Dao [facility] Internal Medicine [address] [facility] [address],[place] [address] 02/23/2019 10:56:38 02/23/2019 12:23:02 Type 2 diabetes mellitus 49542812 E11.9 A1c has increased from 6.6 to 6.9 and 6.7 then 7.2 and then up to 7.3 now discussion re better diet and less carbs remains active outside and he is encouraged to cont as such Essential hypertension 32933581 I10 will keep med propranolo l and follow with poss change to carvedilol next visit Hypercholesterolemia 136 04613 E78.00 will need to cont simvastat now [id number] Osvaldo Dao [facility] Internal Medicine [address] [facility] [address],[place] [address] 06/17/2019 11:06:28 06/17/2019 11:35:26 Type 2 diabetes mellitus 78151149 E11.9 A1c has increased from 6.6 to 6.9 and 6.7 then 7.2 and then up to 7.3 now unfortunat thiago the insurance is denying his glimepirid e will need to change to discussion re better diet and less carbs remains active outside and he is encouraged to cont as such Essential hypertension 62631692 I10 will need to change propranolo l to atenolol due to insurance [id number] Osvaldo Dao [facility] Internal Medicine [address] [facility] [address],[place] [address] 09/30/2019 14:40:24 09/30/2019 15:23:00 Essential hypertension 38599593 I10 will need to change propranolo l to atenolol due to insurance Type 2 tristin betes mellitus 69556925 E11.9 A1c has increased from 6.6 to 6.9 and 6.7 then 7.2 and 7.3 and now 7.4 unfortunat thiago the insurance is still denying his glimepirid e will need to change to discussion re better diet and less carbs remains active outside and he is encouraged to cont as such Coronary arteriosclerosis 00275521 I25.10 asymptomat ic and is compliant with meds and is being careful and is staying very active atenolol well tolerated [id number] Osvaldo Dao [facility] Internal Medicine [address] [facility],[place] [address] 01/13/2020 11:03:09 01/13/2020 12:00:08 Type 2 diabetes mellitus 30209302 E11.9 A1c has increased from 6.6 to 6.9 and 6.7 then 7.2 and 7.3 and now 7.4 and now down to 7.3 unfortunat thiago the insurance is still denying his glimepirid e will need to change to discussion re better diet and less carbs remains active outside and he is encouraged to cont as such Essential hypertension 24114557 I10 tolerates the atenolol no issues Chronic anxiety 96247609 9 F41.9 seems stable despite passing of son from pancreatic cancer several months ago Coronary arteriosclerosis 01887704 I25.10 asymptomat ic and is compliant with meds and is being careful and is staying very active atenolol well tolerated [id number] Osvaldo Dao DO [facility] Internal Medicine [address] [facility],[place] [employer] [place] [address] 05/30/2020 10:49:55 05/30/2020 12:24:12 Type 2 diabetes mellitus 31748438 E11.9 A1c has decreased to 6.9 from 7.2 and 7.3 discussion re better diet and less carbs remains active outside and he is encouraged to cont as such Acute depression 7215499 08 F32.9 seems to be back to baseline Essential hypertension 35997511 I10 tolerates the atenolol no issues Coronary arteriosclerosis 92814928 I25.10 asymptomat ic and is compliant with meds and is being careful and is staying very active atenolol well tolerated [id number] TRUPTI DAVEY [facility] Internal Medicine [address] [facility] [address],[place] [address] 08/31/2020 10:24:18 08/31/2020 16:07:21 Chronic anxiety 461160569 F41.9 stable on his medication , no change or interventi on made in the hospital Essential hypertension 88304374 I10 the patient BP is fine today no interventi on should be made at this time as the patient reports that he is having mild episodes of orthostati c hypotensio n related to sudden shifts of change in position related to going from sitting to standing as the patient is at high risk for falls and high risk for major complicati ons due to falls will avoid any medication changes that may drop his BP that may increase risk for falls Type 2 tristin betes mellitus 67374806 E11.9 stable in hospital no changes necessary at this time following up with MB in September for recheck of A1c Permanent cardiac pacemaker 0378645655 98787 Z95.0 patient is following protocol with avoidance of limited over head motion with left arm and lifting weight over 5 pounds in the left arm the patient's incision is well healing with no signs of infection Bradycardia 62080860 R00 .1 stable now with pacemarker [id number] Osvaldo Dao DO [facility] Internal Medicine [address] [facility],[place] [address] 09/26/2020 10:48:55 09/26/2020 12:21:22 Chronic anxiety 184335331 F41.9 seems stable despite passing of son from pancreatic cancer several months ago Type 2 tristin betes mellitus 48735899 E11.9 A1c has decreased to 6.9 from 7.2 and 7.3 discussion re better diet and less carbs remains active outside and he is encouraged to cont as such Essential hypertension 34204816 I10 nnoted that his bp is sl elevated in the morning but after meds it settles down and is good but he is having some side effect possibly with the ankle swelling will stop the amlodipine and place on lisinopril History of placement of stent in anterior descending branch of left coronary artery 275050455 Z95.5 Edema of l ower extremity 503443486 R60.0 will stop the amlodipine [id number] Osvaldo Dao [facility] Internal Medicine [address] [facility],[place] [address] 11/01/2020 14:36:26 11/01/2020 15:45:35 Essential hypertension 36463755 I10 noted that his bp is sl elevated in the morning but after meds it settles down and is good but he is having some side effect possibly with the ankle swelling will stop the amlodipine and place on lisinopril Coronary arteriosclerosis 50094106 I25.10 asymptomat ic and is compliant with meds and is being careful and is staying very active atenolol well tolerated Type 2 tristin betes mellitus 30347261 E11.9 A1c has increased to 7.7 from 6.9 from 7.2 and 7.3 admits to not being too careful due to all the stress he is under discussion re better diet and less carbs remains active outside and he is encouraged to cont as such [id number] TRUPTI DAVEY [facility] Internal Medicine [address] [facility] [address],[place] [address] 12/16/2020 16:03:06 12/19/2020 09:24:07 Coronary arteriosclerosis 14683999 I25.111 stable per recent testing Essential hypertension 64346914 I10 BP 136/80, fine today, recently saw cardiology Gastroesop hageal reflux disease 838947695 K21.9 will trial omeprazole and fu if no improvemen t [id number] TRUPTI DAVEY [facility] Internal Medicine [address] [facility] [address],[place] [address] [place] [address] 01/03/2021 15:54:23 01/03/2021 16:22:24 Muscle strain 80294917 T14.8XXA will set up with script for msk strain [id number] TRUPTI DAVEY [facility] Internal Medicine [address] [facility] [address],[place] [address] 01/17/2021 15:23:42 01/17/2021 15:45:56 Muscle strain 33973851 T14.8XXA will set up with script for msk claus young instructio paulino on how to take [id number] Osvaldo Dao DO [facility] Internal Medicine [address] [facility] [address],[place] [address] 04/26/2021 15:34:30 04/26/2021 16:39:37 Type 2 diabetes mellitus 80835672 E11.9 A1c has decreased to 7.2 from 7.7 from 6.9 from 7.2 and 7.3 admits to not being better with diet but still eats a lot of carbs.r discussion re better diet and less carbs remains active outside and he is encouraged to cont as such Essential hypertension 94356994 I10 noted that his bp is stable on currewnt meds no issues and leg swelling has cleared up off the amlodipine Chest pain on exertion 56770401 R07.89 he has had these symptoms since before the pacemaker was placedas described given the history of heart block and pacer am wondering if there is underlying ischemia we will have him see the cardiologi on saturday as he is going to get pacer checked any way will have him discuss symptoms thenhe has undergone a nuclear cardiac scan at that time and it was normal but i am concerned that his discomfort is still of cardiac origin so he wiull discuss this with cardiologi on saturday [id number] Osvaldo Dao DO [facility] Internal Medicine [address] [facility],[place] [address] 07/31/2021 11:51:29 08/01/2021 14:06:59 Type 2 diabetes mellitus 61337934 E11.9 A1c has decreased to 8.7 from 7.2 from 7.7 from 6.9 from 7.2 and 7.3 admits to not being better with diet but still eats a lot of carbs.r discussion re better diet and less carbs with sonwe will need to adjust med if gluc remains high Coronary arteriosclerosis 27615998 I25.111 asymptomat ic and is compliant with meds and is being careful and is staying very active atenolol well tolerated [id number] Osvaldo Dao DO [facility] Internal Medicine [address] [facility],[place] [address] 09/22/2021 10:04:21 09/22/2021 12:17:49 Type 2 diabetes mellitus 70583385 E11.9 a1c is now up to 9.2 from 8.2 and prior to that was in the upper 6admits to not being better with diet but still eats a lot of carbs. discussion re better diet and less carbs with sonwe will need to start jardiance Essential hypertension 07835798 I10 noted that his bp is stable on currewnt meds no issues and leg swelling has cleared up off the amlodipine Cellulitis of right lower limb 0983946797 1568189 L03.115 we willsee in 2 weeks unless he has healed then they can cancel appt [id number] Osvaldo Dao DO [facility] Internal Medicine [address] [facility] [address],[place] [address] 10/09/2021 15:42:20 10/09/2021 16:51:12 Cellulitis of right lower limb 2970634318 0160082 L03.115 wounds are now healing nicely and expect full recovery [id number] TRUPTI DAVEY [facility] Internal Medicine [address] [facility],[place] [address] 11/15/2021 10:53:06 11/15/2021 11:37:45 Pressure ulcer 316840222 L89.611 will send in silvadene cream and fu with wound check next weekbetwee n right fifth and fourth toes and on his right anterior lee [id number] TRUPTI DAVEY [facility] Internal Medicine [address] [facility],[place] [address] 11/22/2021 13:25:00 11/22/2021 14:40:55 Pressure ulcer 540070473 L89.611 will send in silvadene cream and fu with wound check next two weeksbetwe en right fifth and fourth toes and on his right anterior shinalso air out areas an hour a day [id number] TRUPTI DAVEY [facility] Internal Medicine [address] [facility] [address],[place] [address] 12/06/2021 11:08:26 12/06/2021 15:13:06 Pressure ulcer 449891178 L89.611 improved significan tly last wound on his little toe, right, is almost completely healed [id number] TRUPTI DAVEY [facility] Internal Medicine [address] [facility] [address],[place] [address] 01/10/2022 09:39:20 01/10/2022 16:16:18 Cellulitis of left foot 2591271149 3945646 L03.116 Right footstart abx for prevention , treatment of cellulitis of the footfu next week for re-evaluat ion Paronychia of toe of left foot 9277372410 2551868 L03.032 start topical for fungal infection of toe nailsR foot Pressure u lcer of foot 5620282252 90309 L89.891 left foot, left little toe, continue use of silvadene cream until I can see it in office next week [id number] TRUPTI DAVEY [facility] Internal Medicine [address] [facility] [address],[place] [address] 01/16/2022 10:06:42 01/16/2022 11:19:12 Ingrowing nail of toe of left foot 5071680863 8087033 L60.0 will send to electronic tester Essential hypertension 01729798 I10 BP 136/80, fine today, recently saw cardiology Hypercholesterolemia 136 67826 E78.2 will repeat cholestero l for cardio Type 2 tristin betes mellitus 25628560 E11.9 stable in hospital no changes necessary at this time following up with MB in September for recheck of A1c [id number] Osvaldo Dao DO [facility] Internal Medicine [address] [facility] [address] [employer] [address] 01/22/2022 10:50:23 01/22/2022 11:47:30 Type 2 diabetes mellitus 94979332 E11.9 a1c is now down to 8.4 and in september was up to 9.2 from 8.2 in jul and prior to that was in the upper 6admits to not being better with diet but still eats a lot of carbs. discussion re better diet and less carbswe will need to start jardiance Essential hypertension 12492034 I10 noted that his bp is stable on current meds no issues and leg swelling has cleared up off the amlodipine Active or passive immunization 640367925 Z23 advised due for pneumonia shot patient said he really didn't want any more vaccines Advance care planning 71 1779148 Z71.89 Son has advance care planning not with patient today Coronary arteriosclerosis 53512328 I25.111 asymptomat ic and is compliant with meds and is being careful and is staying very active atenolol well tolerated Edema of l ower extremity 018523451 R60.0 seems to be doing much better [id number] Osvaldo Dao DO [facility] Internal Medicine [address] [facility] [address],[place] [address] 04/23/2022 13:38:18 04/23/2022 14:26:52 Type 2 diabetes mellitus 17969516 E11.9 a1c is now down to 7.5 was 8.4 and in september was up to 9.2 from 8.2 in jul and prior to that was in the upper 6better with diet taking 2 glimepirid es discussion re better diet and less carbswe will need to start jardiance Essential hypertension 34201836 I10 noted that his bp is stable on current meds no issues and leg swelling has cleared up off the amlodipine Active or passive immunization 341756663 Z23 patient advised he is due for tdap, pneu & shingles Cellulitis of toe of right foot 3778024348 5731129 L03.031 [id number] TRUPTI DAVEY [facility] Internal Medicine [address] [facility],[place] [address] 05/25/2022 14:16:24 05/25/2022 16:36:48 Peripheral vascular disease 574749102 I73.89 getting the stent placed next Saturday Venous sta sis ulcer of leg 461384637 I83.011 will f/u with silvadene as usual, also due to upcoming surgery will start on abx to prevent possible infection or worsening infection RIGHT [id number] Osvaldo Dao DO [facility] Internal Medicine [address] [facility] [address],[place] [address] 08/14/2022 13:28:03 08/14/2022 15:08:15 Essential hypertension 26517995 I10 noted that his bp is stable on current meds no issues and leg swelling has cleared up off the amlodipine Type 2 tristin betes mellitus 69348876 E11.9 a1c is now down to 7.5 was 8.4 and in september was up to 9.2 from 8.2 in jul and prior to that was in the upper 6better with diet taking 2 glimepirid es discussion re better diet and less carbswe will need to start jardiance Coronary arteriosclerosis 79520466 I25.111 asymptomat ic and is compliant with meds and is being careful and is staying very active atenolol well tolerated Venous sta sis ulcer of leg 937842153 I83.011 healed now Peripheral vascular disease 654099852 I73.89 jsut had a new stent in the right upper leg [id number] Osvaldo Dao DO [facility] Internal Medicine [address] [facility],[place] 7 12/04/2022 14:41:27 12/04/2022 15:44:10 Type 2 diabetes mellitus 39777433 E11.9 a1c is now down to 7.5 was 8.4 and in september was up to 9.2 from 8.2 in jul and prior to that was in the upper 6better with diet taking 2 glimepirid es discussion re better diet and less carbswe will need to start jardiance Essential hypertension 36180414 I10 noted that his bp is stable on current meds no issues and leg swelling has cleared up off the amlodipine note his kidney test is much better than last year [id number] TRUPTI DAVEY [facility] Internal Medicine [address] [facility],[place] [address] 12/19/2022 13:48:38 12/19/2022 14:29:33 Acute otitis media 3775894 H65.02 agreed to trying ear dropcontin ue with the flonase and allergy medication as wel Impacted c erumen of bilateral ears 5084831049 843072 H61.23 improved right side [id number] Osvaldo Dao DO [facility] Internal Medicine [address] [facility],[place] [address] 01/04/2023 15:08:42 01/04/2023 16:09:55 Acute otitis media 5698848 H65.02 resolved now Superficia l injury of finger 832343889 S60.940A will treat with mupirocin [id number] Osvaldo Dao DO [facility] Internal Medicine [address] [facility],[place] [address] 01/30/2023 14:50:21 01/30/2023 15:54:07 Essential hypertension 37934935 I10 noted that his bp is stable on current meds no issues and leg swelling has cleared up off the amlodipine note his kidney test is much better than last year Coronary arteriosclerosis 13682658 I25.111 asymptomat ic and is compliant with meds and is being careful and is staying very active atenolol well tolerated Acute otitis media 54545 03 H65.02 resolved now Type 2 tristin betes mellitus 68097003 E11.9 a1c is now down to 7.4 was 7.5 was 8.4 and in september was up to 9.2 from 8.2 in jul and prior to that was in the upper 6better with diet taking 2 glimepirid es discussion re better diet and less carbswe will need to start jardiance [id number] Osvaldo Dao [facility] Internal Medicine [address] [facility],[place] [address] 05/10/2023 15:15:12 05/10/2023 16:01:42 Essential hypertension 49106751 I10 noted that his bp is stable on current meds no issues and leg swelling has cleared up off the amlodipine note his kidney test is much better than last year Hypercholesterolemia 136 83522 E78.2 will need to cont simvastat now Type 2 tristin betes mellitus 80809388 E11.9 a1c is now up to 8 he had been down to 7.4 was 7.5 was 8.4 and in september was up to 9.2better with diet taking 2 glimepirid es fdoing ok otherwise discussion re better diet and less carbs [id number] Osvaldo Dao [facility] Internal Medicine [address] [facility] [address],[place] [address] 09/24/2023 13:15:23 09/24/2023 15:04:59 Essential hypertension 54490039 I10 noted that his bp is stable on current meds no issues and leg swelling has cleared up off the amlodipine note his kidney test is much better than last year Hypercholesterolemia 136 83417 E78.2 will need to cont simvastat now Type 2 tristin betes mellitus 84122661 E11.9 a1c is now up to 9 was 8 he had been down to 7.4 was 7.5 was 8.4 and in september was up to 9.2better with diet taking 2 glimepirid es fdoing ok otherwise discussion re better diet and less carbs Bilateral cataracts 9572 2003 H26.9 [id number] TRUPTI DAVEY [facility] Internal Medicine [address] [facility],[place] [address] 12/16/2023 09:59:45 12/17/2023 12:14:07 Pre-surgery evaluation 099041029 Z01.818 The patient was seen in the office today for pre-op evaluation . All medical conditions on patient's problem list were addressed and are currently stable, no interventi on needed at this time. Based on history and physical performed, the patient is cleared for surgery. [id number] Osvaldo Dao DO [facility] Medicine [address] [facility],[place] [address] 01/29/2024 13:21:03 01/29/2024 16:50:34 Essential hypertension 23312872 I10 noted that his bp is stable on current meds no issues and leg swelling has cleared up off the amlodipine note his kidney test is much better than last year Type 2 tristin betes mellitus 39812568 E11.9 a1c is now back down to 7.7 fro, 9.9 much better priorwas 8 he had been down to 7.4 was 7.5 was 8.4 and in september was up to 9.2better with diet taking 2 glimepirid es fdoing ok otherwise discussion re better diet and less carbs [id number] Osvaldo Dao DO [facility] Medicine [address] [facility],[place] [address] 05/25/2024 13:36:43 05/25/2024 14:49:01 Hypercholesterolemia 48815756 E78.2 will need to cont simvastat now Type 2 tristin betes mellitus 38028335 E11.9 a1c is now back up to 9.3 he was down to 7.7 fro, 9.9we will stop the metformin and have him start the pioglitazo ne 15mg priorwas 8 he had been down to 7.4 was 7.5 was 8.4 and in september was up to 9.2better with diet taking 2 glimepirid es doing ok otherwise discussion re better diet and less carbs [id number] TRUPTI DAVEY [facility] [address],Gege mooree [place] [id number] 07/13/2024 11:11:03 07/13/2024 12:27:03 Dysuria [id number] R30.0 send out urine Type 2 tristin betes mellitus [id number] E11.9 adjusted medication piogliatoz one caused urinary symptomsre commended althigh expense, acarbose seems to be the cheapest alt and pt refused injections Health Concerns Section Related Observation LastModified by Organization Detai ls LastModified Time None Recorded Concern Status LastModified by Organization Details LastModified Time None Recorded Advance Directives Directive None Recorded Payers Encounter Date Sequence Insurance Name Policy Number Policy Flores Covered Member ID Flores Member ID Guarantor Name 09/24/2023 1 [facility] - MEDICARE PREFERRED (MEDICARE REPLACEMENT HMO) HAMPS Harsh Carrier [id number] Harsh A Carrier 12/16/2023 1 [facility] - MEDICARE PREFERRED (MEDICARE REPLACEMENT HMO) HAMPS Harsh Carrier [id number] Harsh A Carrier 01/29/2024 1 [facility] - MEDICARE PREFERRED (MEDICARE REPLACEMENT HMO) HAMPS Harsh Carrier [id number] Harsh A Carrier 05/25/2024 1 [facility] PL[facility] - MEDICARE PREFERRED (MEDICARE REPLACEMENT HMO) HAMPS Harsh Carrier [id number] Harsh A Carrier 07/13/2024 1 [facility] PLAN - MEDICARE PREFERRED (MEDICARE REPLACEMENT HMO) HAMPS Harsh Carrier [id number] Harsh A Carrier Notes Date Note Type Note Provider Name a nd Address Organization Details Recorded Time 4 text/html Care Management - DiabetesReported bypatient.Prognosis:ex pected outcome: stabilize; prognosis: moderate Self Care:seeing eye doctor yearly for dilated eye exam; checking feet regularly; normal range of home blood sugars (in the low 100s); no side effects from medications; hemoglobin A1C goal: <7; hemoglobin A1C levels have been: 8-9 Associated Symptoms:symptoms are usually well controlled; no fatigue; no dizziness; no excessive sweating; no headaches; no confusion; no increased thirst; no increased appetite; no increased urination; no blurred vision; no numbness of feet; no calluses on feet here for eval of bp and dmbp is elevated today at 179 sys also his a1c is up to 9eats a lot of breadrelates has a good appetite Osvaldo Dao DO [address] [place], [address], [facility] 09/24/2023 13:40:45 4 text/html Pre-OpReported bypatient.Surgery to be Performed:bilateral cataract surgery with Dr. Cedillo R eye first L eye second Context/Condition Being Addressed:cataract surgery Location:R eye > L eye Severity:moderate Risk Factorsno cognitive impairment; no functional impairment; no malnutrition; no frailty; able to climb a flight of stairs (exercise capacity>4 METS); no obstructive sleep apnea; non-smoker; no alcohol misuse; no illicit drug use; no chronic cardiopulmonary condition; not obese; does have bilateral hearing loss Anesthesia hx:no hx of anesthesia complications; no allergy to anesthetic agents; no family history of anesthesia complications Functional Ability:able to walk up stairs; able to perform heavy work around the house; no difficulty walking up hills; able to walk 4 mph Post-Op Support:adequate assistance at home (his son) TRUPTI DAVEY [address] [place], [phone], [facility] 12/16/2023 10:19:29 4 text/html feels well no major complaintsrelates he had the eye surgery donw on OShad a large cataract taken outbp is good at fkoil1z is 7.7 was 9.9 doing much better Osvaldo Dao DO [address] [place], [address], [facility] 01/29/2024 13:33:54 5 text/html c/o dysuria pt is having increased urinary symptoms, pain, weaker stream, difficulty emptying bladder since being on the pioglitazone did stop it 4 to 5 days ago and states he is feeling betterurine showed positive leuks and bloodwill send out culture, start on bactrim stop the pioglitazone given side effect possibilitystart acarbose which is a lower cost option as opposed to rybelsus which is upwards of $600 for the patient will let pt family know so they are aware TRUPTI DAVEY [address] [place] [address], [phone], [facility] 07/13/2024 12:25:36
[2024-08-19 13:53] LABS: Appearance Urine Turbid; Color Urine Yellow; Glucose Urine UA Negative (Negative); Leukocyte Esterase Urine Large (3+) (Negative); Nitrite Urine Positive (Negative); PH 6.5 (5.0-9.0); UMIC TRIGGER UACC YES; Urine Blood Small (1+) (Negative); Urine Ketones Negative (Negative); Urine Protein Negative (Neg-Trace)
[2024-08-19 14:00] LABS: Bacteria Urine 4+ (None Seen); Hyaline Casts Urine 0-2 /LPF (0-2); RBC Urine >20 /HPF (0-2); Squamous Epithelial Cell Urine 0-2 /HPF (0-2); UACC Culture Trigger YES; WBC Urine >50 /HPF (0-5)
[2024-08-19 14:14] LABS: Estimated Average Glucose 200 mg/dL; Hemoglobin A1C 219.0758 umol/L; Hemoglobin A1c % 8.6 % (<6.0); Total Hemoglobin (HGBA1C) 3099.4154 umol/L
== END 2024-08-19 09:11 | disposition home or self-care (01) ==
LOC: HO.MANLDS 09:10
PROVIDERS: Visit Provider Internal Medicine
DX: E11.9 Type 2 diabetes mellitus without complications (principal); R82.90 Unspecified abnormal findings in urine
CPT/HCPCS: 36415; 81001; 83036; 87086; 87088; 87186

== ENCOUNTER 2024-11-24 08:40 | Outpatient (REF) | payer MEDICARE, SELFPAY ==
[2024-11-24 13:48] LABS: Estimated Average Glucose 229 mg/dL; Hemoglobin A1C 263.0887 umol/L; Hemoglobin A1c % 9.6 % (<6.0); Total Hemoglobin (HGBA1C) 3238.7719 umol/L
== END 2024-11-24 08:41 | disposition home or self-care (01) ==
LOC: HO.MANLDS 08:40
PROVIDERS: Visit Provider Internal Medicine
DX: E11.9 Type 2 diabetes mellitus without complications (principal)
CPT/HCPCS: 36415; 83036